=== PATIENT | male | born 1955 | race Caucasian/White ===

== ENCOUNTER 2025-05-04 13:15 | Outpatient (CLI) | payer MEDICARE | END 2025-05-04 13:16 | disposition home or self-care (01) | LOC: SCSMRI 13:15 | PROVIDERS: ATTEND Family Medicine | DX: R41.3 Other amnesia (principal); H53.9 Unspecified visual disturbance; R90.82 White matter disease, unspecified; I73.9 Peripheral vascular disease, unspecified; Z96.1 Presence of intraocular lens | CPT/HCPCS: 70551 ==

== ENCOUNTER 2025-08-08 09:13 | Outpatient (CLI) | payer MEDICARE | END 2025-08-08 09:14 | disposition home or self-care (01) | LOC: SCSMRI 09:13 | PROVIDERS: ATTEND Orthopaedic Surgery Hand Surgery | DX: S63.592A Other specified sprain of left wrist, initial encounter (principal); S69.92XA Unspecified injury of left wrist, hand and finger(s), initial encounter; S60.212A Contusion of left wrist, initial encounter ==

== ENCOUNTER 2025-08-30 06:46 | Day surgery (SDC) | payer MEDICARE ==
[2025-08-01 14:20] VITALS: BMI 23.6
[2025-08-30 08:21] LABS: #Basophils 0.05 10x3/uL (0.0-0.2); #Eosinophils 0.29 10x3/uL (0.0-0.7); #Monocytes 0.67 10x3/uL (0.11-0.59); #Neutrophils 4.34 10x3/uL (1.40-6.50); %Basophils 0.6 % (0.0-1.0); %Eosinophils 3.8 % (0.0-10.0); %Lymphocytes 30.4 % (21.0-51.0); %Monocytes 8.7 % (0.0-10.0); %Neutrophils 56.2 % (42.0-75.0); Hematocrit 39.7 % (42.0-52.0); Hemoglobin 12.7 g/dL (14.0-18.0); Mean Corpuscular Hemoglobin 30.0 pg (27.0-31.0); Mean Corpuscular Volume 93.6 fL (78.0-98.0); Platelet Count 232 10x3/uL (130-400); Red Blood Cell (RBC) Count 4.24 mill/uL (4.70-6.10); White Blood Cell (WBC) Count 7.71 10x3/uL (4.8-10.8)
[2025-08-30] MEDS ORDERED: CEFAZOLIN 2 GM VIAL ONE (12:17)
[2025-08-30] MEDS ORDERED: Bacitracin Zinc Ointment 30 gm TUBE ONE (13:17)
[2025-08-30] MEDS ORDERED: fentaNYL PF 100 MCG/2 ML SYRINGE ONE ×2 (13:20→15:01)
[2025-08-30] MEDS ORDERED: Ondansetron PF 4 MG/2 ML Vial ONE (13:20)
[2025-08-30] MEDS ORDERED: Lidocaine 1% PF 5 ML VIAL ONE (13:20)
[2025-08-30] MEDS ORDERED: PROPOFOL 20 ML ONE (13:20)
[2025-08-30] MEDS ORDERED: Ropivacaine 0.5% HCl/PF (150 MG/30 ML VIAL) ONE (13:30)
[2025-08-30] MEDS ORDERED: Ropivacaine 2% HCl/PF (20 MG/10 ML VIAL) ONE (13:30)
[2025-08-30] MEDS ORDERED: PHENYLEPHRINE-NS 100 MCG/ML 10 ML SYRINGE ONE ×2 (13:55→14:05)
[2025-08-30] MEDS ORDERED: PROPOFOL 200 MG/20 ML VIAL ONE (13:55)
[2025-08-30] MEDS ORDERED: Ketorolac Tromethamine 30 MG (1 mL) VIAL ONE (16:22)
== END 2025-08-30 17:30 | disposition home or self-care (01) ==
LOC: SDC 06:46
PROVIDERS: ATTEND Orthopaedic Surgery Hand Surgery
PROC: 0MQ64ZZ Repair Left Wrist Bursa and Ligament, Percutaneous Endoscopic Approach (ICD-10-PCS; principal; 2025-08-30)
DX: S63.592A Other specified sprain of left wrist, initial encounter (principal); M25.839 Other specified joint disorders, unspecified wrist; I10 Essential (primary) hypertension; E11.9 Type 2 diabetes mellitus without complications; Z90.49 Acquired absence of other specified parts of digestive tract; X58.XXXA Exposure to other specified factors, initial encounter
CPT/HCPCS: 29846; 73090; 82962; 85025; A6223; C1713 ×7; J1100; J2405; J2704; 36416; J0169; J0665; J1885; J2795